=== PATIENT | female | born 2005 | race Caucasian/White ===

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

== ENCOUNTER 2024-01-24 15:30 | Emergency (ER) | payer OTHER, SELFPAY ==
[2024-01-24 15:36] VITALS: BP 150/92; PULSE 81; TEMP 36.7; O2SAT 100; BMI 24.1
[2024-01-24 16:47] LABS: Influenza Virus A Antigen Negative; Influenza Virus B Antigen Negative; Internal Control Within Normal Limits; SARS-CoV-2 Ag NEGATIVE (NEGATIVE); Strep A Antigen Screen Negative
--- NOTE | 2024-01-24 17:12 | ED_ITS ---
HPI - URI/Sore Throat General Chief Complaint: Upper Respiratory Infection Stated Complaint: URTI Time Seen by Provider: 01/24/24 15:49 Source: patient and family Limitations: no limitations History of Present Illness HPI Narrative: The patient presented to us with a sore throat and runny nose for the last 2 days, the patient denies any other significant complaint no nausea vomiting but she does have some decreased appetite Related Data Previous Rx's ?Medication ?Instructions ?Recorded ibuprofen 600 mg tablet 600 mg PO Q8H PRN pain #20 tabs 01/24/24 Allergies Allergy/AdvReac Type Severity Reaction Status Date / Time amoxicillin Allergy Severe Hives Verified 05/28/23 07:36 Review of Systems ROS Status of ROS 10 or more systems reviewed and unremark able except as noted in history and below Exam Narrative Exam Narrative: Nurses notes and vital signs reviewed and patient is not hypoxic. General: Well-appearing and in no apparent distress. Skin: Warm, dry, no pallor noted. No rash. Head: Normocephalic, atraumatic. Neck: Supple, non-tender. Eye: Pupils are equal, round and EOMI. No scleral icterus. Ears, Nose, Mouth, and Throat: TM are clear, no nasal mucosal hypertrophy. Oral mucosa is moist, no posterior oropharynx erythema, uvula is mid-line Cardiovascular: Regular Rate and Rhythm without murmur, gallop or rub. Respiratory: No accessory muscle use or respiratory distress. Lungs are clear to auscultation, no wheezing, rales or rhonchi Chest Wall: no tenderness Back: No midline thoracic or lumbar vertebral tenderness. No CVA tenderness Musculoskeletal: normal ROM, no calf or popliteal tenderness, no lower extremity edema/swelling GI: Abdomen is soft, non-distended. Normal bowel sounds. No masses appreciated. No tenderness to palpation. No rebound, guarding, or rigidity noted. Neurological: A&O x4. No cranial nerve dysfunction observed. No truncal ataxia. Moves all extremities. Sensation intact. Psychiatric: Cooperative and interactive. Normal mood and affect. Constitutional Vital Signs, click to edit/add: Last Vital Signs Temp 98.0 F 01/24/24 15:36 Pulse 81 01/24/24 15:36 Resp 18 01/24/24 15:36 BP 150/92 H 01/24/24 15:36 Pulse Ox 100 01/24/24 15:36 Course Vital Signs Vital signs: Vital Signs Temperature 98.0 F 01/24/24 15:36 Pulse Rate 81 01/24/24 15:36 Respiratory Rate 18 01/24/24 15:36 Blood Pressure 150/92 H 01/24/24 15:36 Pulse Oximetry 100 01/24/24 15:36 Temperature 98.0 F 01/24/24 15:36 Pulse Rate 81 01/24/24 15:36 Respiratory Rate 18 01/24/24 15:36 Blood Pressure 150/92 H 01/24/24 15:36 Pulse Oximetry 100 01/24/24 15:36 MDM - URI/Sore Throat MDM Narrative Medical decision making narrative: The patient COVID flu and strep are negative Right now the patient will be treated supportively with ibuprofen The patient is to follow up with primary care physician in next 2-3 days or to return to the emergency department should any of the signs or symptoms worsen or new symptoms develop. The patient agrees with the following Diagnosis and Treatment plan and the patient will be discharged home. Lab Data Labs: Lab Results 01/24/24 Range/Units 15:38 Influenza Type A Ag Negative Influenza Type B Ag Negative SARS-CoV-2 Ag (CV2AG) Negative (NEGATIVE) Streptococcus Screen Negative Discharge Plan Discharge Stand Alone Forms: Portal Instructions Chief Complaint: Upper Respiratory Infection Clinical Impression: Viral infection Patient Disposition: Home, Self-Care Time of Disposition Decision: 17:11 Condition: Good Prescriptions / Home Meds: New ibuprofen 600 mg tablet 600 mg PO Q8H PRN (Reason: pain) Qty: 20 0RF Print Language: [place] Instructions: Viral Syndrome (ED) Referrals: ALPHONSE AREVALO [Primary Care Provider] - 1 week
[2024-01-24] MEDS: ONDANSETRON 4 MG RAPDIS TABLET SL (17:30)
[2024-01-24 17:34] VITALS: BP 120/74; PULSE 56; O2SAT 99
== END 2024-01-24 17:37 | disposition home or self-care (01) ==
PROVIDERS: Emergency Provider Emergency Medicine; PCP Family Medicine
DX: B34.9 Viral infection, unspecified (principal); Z20.822 Contact with and (suspected) exposure to COVID-19
CPT/HCPCS: 87070; 87804; 87811; 87880; 99283